=== PATIENT | male | born 1950 | race Caucasian/White ===

== ENCOUNTER 2019-06-23 17:33 | Emergency (ER) | payer MEDICARE, BC ==
[2019-06-23] MEDS ORDERED: Metoprolol Tartrate 5 MG/5 ML SDV IVPUSH ONE ×2 (17:57→18:32)
[2019-06-23] MEDS ORDERED: Sodium Chloride 0.9% 1,000 ML IV SCH (18:00)
--- NOTE | 2019-06-23 18:39 | EDM.PDOC ---
<Niru Priest - Last Filed: 06/23/19 18:58> ED HPI GENERAL MEDICAL PROBLEM - General Stated Complaint: HEART RATE Time Seen by Provider: 06/23/19 18:00 Source of Information: Reports: Patient, Family History Limitations: Reports: No Limitations - History of Present Illness INITIAL COMMENTS - FREE TEXT/NARRATIVE: patient is a very pleasant 68-year-old male who presents today with concern for his heart beating fast all day. He states that this morning he noted when he took his blood pressure that his heart rate was around 1:30. He felt a little bit dizzy but then didn't have any other symptoms so he went about doing some work around the house. When his got home he told her what was going on and she brought him to the ER. He had one episode similar to this approximately 9 years ago and has had nothing like this since. He has felt some slight shortness of breath with moving around and a little bit of a funny feeling in his chest all day today. Easily started on thyroid medication 50 MCG by his primary. Also history of diabetes, but not on insulin. He is on metoprolol for blood pressure and certain that he took it this morning. Otherwise no recent illnesses, no significant change in activity or anything else which may have contributed to this happening. He feels well and has not had any fever, chills or sweats, chest pain, nausea or vomiting, diarrhea - Related Data Allergies Allergy/AdvReac Type Severity Reaction Status Date / Time Penicillins Allergy Other Verified 06/23/19 18:32 Home Meds: Home Meds Ascorbate Calcium [Vitamin C] 500 mg PO DAILY 06/23/19 [History] Aspirin [Halfprin] 81 mg PO DAILY 06/23/19 [History] Calcium Carbonate [Calcium] 600 mg PO DAILY 06/23/19 [History] Cannabidiol (Cbd) Extract [CBD Oil] 17 mg PO ASDIRECTED 06/23/19 [History] Dapagliflozin Propanediol [Farxiga] 5 mg PO DAILY 06/23/19 [History] Fenofibrate Nanocrystallized [Fenofibrate] 145 mg PO DAILY 06/23/19 [History] Krill Oil 500 mg PO DAILY 06/23/19 [History] Levothyroxine [Synthroid] 50 mcg PO ACBREAKFAST 06/23/19 [History] Magnesium 400 mg PO DAILY 06/23/19 [History] Melatonin 5 mg PO BEDTIME 06/23/19 [History] Methylcellulose [Fiber] 0 mg PO DAILY 06/23/19 [History] Metoprolol Tartrate [Lopressor] 37.5 mg PO BID 06/23/19 [History] Vitamin B Complex 1 each PO DAILY 06/23/19 [History] Past Medical History Cardiovascular History: Reports: High Cholesterol, Hypertension Endocrine/Metabolic History: Reports: Diabetes, Type II, Hypothyroidism Social & Family History - Tobacco Use Smoking Status *Q: Former Smoker - Alcohol Use Alcohol Use History: No - Recreational Drug Use Recreational Drug Use: No - Living Situation & Occupation Living situation: Reports: Occupation: Retired ED ROS GENERAL - Review of Systems Review Of Systems: ROS reveals no pertinent complaints other than HPI. ED EXAM, GENERAL - Physical Exam Exam: See Below Free Text/Narrative:: Gen.: Alert, very pleasant no acute distress. Head is atraumatic, pupils equal and reactive, throat without erythema and mucous members are moist. Heart is tachycardic and regular around 140. Lungs are clear throughout with no wheezes or crackles. Abdomen positive bowel sounds, soft nondistended nontender. Peripheral pulses +2 in the upper and lower extremities and he has no lower extremity edema. His strength is equal side to side and his gait is normal.Obvious lesions or rashes and there is no joint swelling. EKG INTERPRETATION Rhythm: A-Flutter Course - Vital Signs Text/Narrative:: patient presenting with tachycardia which started this morning, EKG shows a flutter. Given that he is already on metoprolol decision made to use Lopressor to decrease rate. Labs and IV fluid ordered as well. Good blood pressure Last Recorded V/S: Last Vital Signs Temp 36.4 C 06/23/19 17:33 Pulse 97 06/23/19 18:45 Resp 16 06/23/19 17:33 BP 111/84 06/23/19 18:45 Pulse Ox 96 06/23/19 17:33 - Orders/Labs/Meds Orders: Active Orders 24 hr Category Date Time Status EKG Documentation Completion [RC] ASDIRECTED Care 06/23/19 17:56 Active EKG Documentation Completion [RC] ASDIRECTED Care 06/23/19 19:29 Active EKG Documentation Completion [RC] ASDIRECTED Care 06/23/19 20:17 Active Sodium Chloride 0.9% [Normal Saline] 1,000 ml Med 06/23/19 18:00 Active IV ASDIRECTED Sodium Chloride 0.9% [Saline Flush] Med 06/23/19 19:54 Active 10 ml FLUSH ASDIRECTED PRN EKG 12 Lead [EK] Routine Ther 06/23/19 17:55 Ordered EKG 12 Lead [EK] Routine Ther 06/23/19 19:28 Ordered EKG 12 Lead [EK] Routine Ther 06/23/19 20:17 Ordered Medication Orders Sodium Chloride (Normal Saline) 1,000 mls @ 999 mls/hr IV ASDIRECTED MI Last Admin: 06/23/19 18:12 Dose: 999 mls/hr Sodium Chloride (Saline Flush) 10 ml FLUSH ASDIRECTED PRN PRN Reason: Keep Vein Open Last Admin: 06/23/19 20:43 Dose: 10 ml Admin: 06/23/19 19:55 Dose: 10 ml Labs: Laboratory Tests 06/23/19 06/23/19 06/23/19 Range/Units 18:03 18:03 18:03 WBC 7.8 (4.5-12.0) X10-3/uL RBC 5.16 (4.30-5.75) x10(6)uL Hgb 15.2 (13.5-17.8) g/dL Hct 44.9 (30.0-51.3) % MCV 87.0 (80-96) fL MCH 29.4 (27.7-33.6) pg MCHC 33.9 (32.2-35.4) g/dL RDW 12.9 (11.5-15.5) % Plt Count 251 (125-369) X10(3)uL MPV 9.0 (7.4-10.4) fL Neut % (Auto) 61.9 (46-82) % Lymph % (Auto) 24.4 (13-37) % [place] % (Auto) 6.6 (4-12) % Eos % (Auto) 6 H (1.0-5.0) % Baso % (Auto) 1 (0-2) % Neut # (Auto) 4.8 (1.6-8.3) # Lymph # (Auto) 1.9 (0.6-5.0) # [place] # (Auto) 0.5 (0.0-1.3) # Eos # (Auto) 0.5 (0.0-0.8) # Baso # (Auto) 0.1 (0.0-0.2) # Sodium 139 (135-145) mmol/L Potassium 4.6 (3.5-5.3) mmol/L Chloride 103 (100-110) mmol/L Carbon Dioxide 25 (21-32) mmol/L BUN 35 H (7-18) mg/dL Creatinine 1.7 H (0.70-1.30) mg/dL Est Cr Clr Drug Dosing TNP Estimated GFR (MDRD) 40 L (>60) BUN/Creatinine Ratio 20.6 H (9-20) Glucose 150 H (80-116) mg/dL Calcium 9.7 (8.6-10.2) mg/dL Magnesium 2.1 (1.8-2.5) mg/dL Troponin I < 0.017 L (<0.017-0.056) ng/mL TSH, Ultra Sensitive (0.36-3.74) IU/mL 06/23/19 Range/Units 19:12 WBC (4.5-12.0) X10-3/uL RBC (4.30-5.75) x10(6)uL Hgb (13.5-17.8) g/dL Hct (30.0-51.3) % MCV (80-96) fL MCH (27.7-33.6) pg MCHC (32.2-35.4) g/dL RDW (11.5-15.5) % Plt Count (125-369) X10(3)uL MPV (7.4-10.4) fL Neut % (Auto) (46-82) % Lymph % (Auto) (13-37) % [place] % (Auto) (4-12) % Eos % (Auto) (1.0-5.0) % Baso % (Auto) (0-2) % Neut # (Auto) (1.6-8.3) # Lymph # (Auto) (0.6-5.0) # [place] # (Auto) (0.0-1.3) # Eos # (Auto) (0.0-0.8) # Baso # (Auto) (0.0-0.2) # Sodium (135-145) mmol/L Potassium (3.5-5.3) mmol/L Chloride (100-110) mmol/L Carbon Dioxide (21-32) mmol/L BUN (7-18) mg/dL Creatinine (0.70-1.30) mg/dL Est Cr Clr Drug Dosing Estimated GFR (MDRD) (>60) BUN/Creatinine Ratio (9-20) Glucose (80-116) mg/dL Calcium (8.6-10.2) mg/dL Magnesium (1.8-2.5) mg/dL Troponin I 0.021 (<0.017-0.056) ng/mL TSH, Ultra Sensitive 4.52 H (0.36-3.74) IU/mL Meds: Medications Generic Name Dose Route Start Last Admin Trade Name Freq PRN Reason Stop Dose Admin Sodium Chloride 1,000 mls @ 999 mls/hr 06/23/19 18:00 06/23/19 18:12 Normal Saline IV 999 mls/hr ASDIRECTED MI Administration Sodium Chloride 10 ml 06/23/19 19:54 06/23/19 20:43 Saline Flush FLUSH 10 ml ASDIRECTED PRN Administration Keep Vein Open Discontinued Medications Generic Name Dose Route Start Last Admin Trade Name Freq PRN Reason Stop Dose Admin Diltiazem HCl 20 mg 06/23/19 19:39 06/23/19 19:47 Diltiazem IVPUSH 06/23/19 19:40 20 mg ONETIME ONE Administration Diltiazem HCl 40 mg 06/23/19 20:18 06/23/19 21:36 Diltiazem IVPUSH 06/23/19 20:19 Not Given ONETIME ONE Diltiazem HCl 25 mg 06/23/19 20:34 06/23/19 20:38 Diltiazem IVPUSH 06/23/19 20:35 25 mg ONETIME ONE Administration Metoprolol Tartrate 5 mg 06/23/19 17:57 06/23/19 18:02 Lopressor IVPUSH 06/23/19 17:58 5 mg ONETIME ONE Administration Metoprolol Tartrate 5 mg 06/23/19 18:32 06/23/19 18:35 Lopressor IVPUSH 06/23/19 18:33 5 mg ONETIME ONE Administration - Re-Assessments/Exams Free Text/Narrative Re-Assessment/Exam: 06/23/19 1900 rate improved to 100bpm after 10mg lopressor. labs reviewed - creatinine 1.7, uncertain baseline repeat EKG ordered signout given to oncoming ED provider at 1900 Departure - Departure Disposition: DC/Tfer to Other 70 Clinical Impression: Atrial flutter Qualifiers: Atrial flutter type: unspecified Qualified Code(s): I48.92 - Unspecified atrial flutter - Discharge Information Referrals: Cyndi Valle PA-C [Primary Care Provider] - - My Orders Last 24 Hours: My Active Orders 06/23/19 20:17 EKG Documentation Completion [RC] ASDIRECTED EKG 12 Lead [EK] Routine - Assessment/Plan Last 24 Hours: My Active Orders 06/23/19 20:17 EKG Documentation Completion [RC] ASDIRECTED EKG 12 Lead [EK] Routine <Terry Hemphill - Last Filed: 06/23/19 21:41> Course - Vital Signs Text/Narrative:: Following assessment after hand off from Dr. Priest, I administered Cardizem 20 mg IV bolus over 2 minutes, with no change in rate or rhythm. 1/2 hour later, I adminstered 25 mg Carizem IV bolus over 2 minutes, with no change. Follow up Troponin I 0.021 and EKG remained unchanged. Consultation was obtained at [facility] with Dr Rivas, who accepted transfer, and patient and spouse are in agreement with this COA. He was stable at time of transfer per ground ambulance. Departure - Departure Time of Disposition: 21:15 Condition: Fair - Discharge Information *PRESCRIPTION DRUG MONITORING PROGRAM REVIEWED*: Not Applicable *COPY OF PRESCRIPTION DRUG MONITORING REPORT IN PATIENT MARIA ESTHER: Not Applicable - Problem List & Annotations (1) Atrial flutter SNOMED Code(s): 0788390 Code(s): I48.92 - UNSPECIFIED ATRIAL FLUTTER Status: Acute Current Visit : Yes Annotation/Comment:: Transfer to [facility] for further evaluation and treatment. Qualifiers: Atrial flutter type: unspecified Qualified Code(s): I48.92 - Unspecified atrial flutter - Problem List Review Problem List Initiated/Reviewed/Updated: Yes - Assessment/Plan Plan: Follow up with PCP upon return.
[2019-06-23] MEDS ORDERED: Diltiazem 25 MG/5 ML SDV IVPUSH ONE ×3 (19:39→20:34)
[2019-06-23] MEDS: Sodium Chloride 0.9% 10 ML Syringe FLUSH PRN ×2 (19:55→20:43)
== END 2019-06-23 22:21 | disposition other institution (70) ==
LOC: FB.ED 17:33
DX: I48.92 Unspecified atrial flutter (principal); I10 Essential (primary) hypertension; E03.9 Hypothyroidism, unspecified; E11.9 Type 2 diabetes mellitus without complications; Z87.891 Personal history of nicotine dependence; Z79.82 Long term (current) use of aspirin; Z79.899 Other long term (current) drug therapy; Z88.0 Allergy status to penicillin
CPT/HCPCS: 36415; 80048; 83735; 84443; 84484; 85025; 93005; 96361; 96374; 96375; 96376; 99285; J3490; J7030

== ENCOUNTER 2019-12-14 06:38 | Inpatient (IN) | payer MEDICARE, BC ==
[~2019-12-14 06:38] MED LIST: Acetaminophen 500 MG Tab PO ONE; Lactated Ringers 1,000 ML IV SCH; Scopolamine 1.5 MG Transdermal Patch TRDERM ONE
[2019-12-14] MEDS ORDERED: Clindamycin in 0.9 % Sod Chlor 900 MG/50 ML BAG IV ONE (07:30)
[2019-12-14] MEDS ORDERED: Clindamycin Phosphate 900 MG in Sodium Chloride 0.9% 100 ML IV ONE (07:30)
[2019-12-14] MEDS ORDERED: Tranexamic Acid 3,000 MG, Sodium Chloride 0.9% 100 ML IRR ONE ×2 (08:00)
[2019-12-14] MEDS ORDERED: Ropivacaine 49.25 ML, Ketorolac 30 MG, EPINEPHrine 0.5 MG, cloNIDine 80 MCG, Sodium Chl... INJECT SCH ×5 (08:00)
[2019-12-14] MEDS ORDERED: Vancomycin 1 GM SDV ONE ×2 (10:12→13:31)
[2019-12-14] MEDS ORDERED: Sennosides 8.6 MG Tab PO PRN (11:30)
[2019-12-14] MEDS ORDERED: diphenhydrAMINE 50 MG/ML SDV IVPUSH PRN (11:30)
[2019-12-14] MEDS ORDERED: Morphine 2 MG/ML Syringe IVPUSH PRN (11:30)
[2019-12-14] MEDS ORDERED: Naloxone 0.4 MG/ML SDV IVPUSH PRN (11:30)
[2019-12-14] MEDS ORDERED: Ondansetron 4 MG/2 ML SDV IVPUSH PRN (11:30)
[2019-12-14] MEDS ORDERED: Bisacodyl 5 MG Tab PO PRN (11:30)
[2019-12-14] MEDS ORDERED: Docusate Sodium 100 MG Cap PO PRN (11:30)
[2019-12-14] MEDS ORDERED: Magnesium Hydroxide 400 MG/5 ML Susp 30 ML Cup PO PRN (11:30)
[2019-12-14] MEDS ORDERED: Acetaminophen/oxyCODONE 325-5 MG Tab PO PRN (11:30)
[2019-12-14] MEDS ORDERED: diphenhydrAMINE 50 MG/ML SDV IV PRN (11:46)
[2019-12-14] MEDS ORDERED: Midazolam 1 MG/ML 2 ML SDV IV ONE ×2 (12:54)
[2019-12-14] MEDS ORDERED: Rocuronium 100 MG/10 ML MDV IV ONE (12:54)
[2019-12-14] MEDS ORDERED: ePHEDrine 50 MG/ML SDV IV ONE ×2 (12:54)
[2019-12-14] MEDS ORDERED: Sugammadex Sodium 200 MG/2 ML VIAL IV ONE (12:54)
[2019-12-14] MEDS ORDERED: Ketamine 500 mg/10 ML MDV IV ONE (12:54)
[2019-12-14] MEDS ORDERED: Succinylcholine 200 MG/10 ML MDV IV ONE (12:54)
[2019-12-14] MEDS ORDERED: Propofol 200 MG/20 ML SDV IV ONE ×2 (12:54)
[2019-12-14] MEDS ORDERED: Lactated Ringers 1,000 ML IV ONE ×2 (12:54)
[2019-12-14] MEDS ORDERED: Morphine PF 10 MG/10 ML SDV EPIDUR ONE (12:54)
[2019-12-14] MEDS ORDERED: fentaNYL 100 MCG/2 ML SDV IV ONE ×2 (12:54)
--- NOTE | 2019-12-14 12:54 | CR ---
INDICATION: Postop. PELVIS: An AP view of the pelvis was obtained postop portable and compared with 10/27/19. There is now noted a total hip arthroplasty on the left. A femoral component is incompletely within the cortex - medullary cavity of the proximal femoral shaft. The medial aspect of the femoral component of the IZABELLA is 28 mm medial to the inner aspect of the cortex of the proximal shaft of the femur. That is new. Moderate degenerative change is noted at the right hip joint with hypertrophic changes, and mild loss of joint space craniolaterally. MTDD
--- NOTE | 2019-12-14 13:13 | CR ---
INDICATION: Operative guidance for total hip arthroplasty left hip. C-ARM FLUOROSCOPY UP TO 1 HOUR IN OR: 0.2 minutes C-arm fluoroscopy time was utilized during total hip arthroplasty. Images numbering 3 were obtained and had the appearance of adequate positioning in the projections obtained. MTDD
--- NOTE | 2019-12-14 14:26 | OR ---
DATE OF OPERATION: 12/14/2019 SURGEON: Craig Silva DO PREOPERATIVE DIAGNOSIS: Left hip primary osteoarthritis. POSTOPERATIVE DIAGNOSIS: Left hip primary osteoarthritis. PROCEDURE: Left hip total hip arthroplasty. ANESTHESIA: Spinal plus conscious sedation. FLUID: Lactated Ringer solution. ESTIMATED BLOOD LOSS: 300 mL. COMPLICATION: Malposition femoral implant. SPECIMEN: None. DISCHARGE DISPOSITION: Stable to PACU. INSTRUMENTATION: DePuy [place] size 6 femur, 56 mm outside diameter acetabular shell with a 6.5 x 25 mm cancellous screw, a hole eliminator, a neutral 36 mm inside diameter 56 mm outside diameter polyethylene acetabular liner and a 36 mm +5 metal femoral head. HISTORY AND INDICATION FOR THE PROCEDURE: The patient was seen preoperatively in the clinic. Preoperative imaging the above-mentioned diagnosis. Risks and goals of the procedure were explained to the patient and informed consent was obtained. DETAILS OF PROCEDURE: The patient was seen preoperatively by myself and Anesthesia staff in the preoperative holding area where the operative site was marked. He was brought to the operative suite by Anesthesia staff, where spinal sedation was administered plus conscious sedation. He was placed into a right lateral recumbent position on a PEG board. All extremities were found to be well padded. A well-padded axillary roll was then placed. The left lower extremity was then prepped and draped in a sterile manner. Time-out was called identifying the correct patient, the correct procedure, the correct site, and the antibiotics were begun within the appropriate period of time. Please note that a sterile Valdes catheter had already been inserted. An incision was made approximately 8 cm proximal to the greater trochanter extending down just distal to the level lesser trochanter. Bleeding during the case was controlled with Bovie electrocautery. The deep subcutaneous fat was then moved off the IT band. An incision was made through the IT band, just slightly anterior to the midline of the shaft, and then a Charnley retractor was inserted. I then used Bovie electrocautery to go down to the level of the lesser trochanter and then around leaving a periarticular cuff extending up into the capsule and the gluteus medius and gluteus minimus. I then went through the deep capsule and placed Homans around the femoral neck and then extended this incision up to the level of the acetabulum going over the acetabulum for exposure. I then made 2 cuts on the neck and then removed the head and neck and then made a clean-up cut on the greater trochanter. After this had been accomplished, I removed my femur out of the way and then placed a sharp Hohmann at 5 and 7 o'clock in the acetabular rim and then placed a threaded pin through the superior acetabulum for retraction. This provided good visualization. I removed any soft tissue and then used a large curette to make sure we were down to the medial wall. I then used an osteotome to remove any osteophytes off the superior acetabulum, which there were many. I then used a 45 reamer to get down to the medial wall and then subsequently reamed up to a 55 at approximately 50 degrees of flexion and 15 degrees anteriorly. I then trialed my 56 acetabular cup, which trialed nicely. I then copiously irrigated with saline, inserted my final cup and liner, and then worked on femoral preparation. I inserted my canal finder, then lateralizing reamer, then subsequently reamed up. At this point, I thought that this was going too easy without chatter, so I placed a broach and found that we were outside of the canal proximally. I did not think that we structurally entered the cortex due to how proximal this was, so I re-reamed after using the canal finder and then broached up to a 6. We then placed a 5 head and this reduced nicely with equal leg length and about 1 mm of Shuck. I then removed my femoral components, copiously irrigated with saline, and then inserted my final components and placed them in and then relocated the hip. I took an intraoperative C-arm film to make sure that we were indeed within the canal, which we were, and no other injury had been encountered. Prior to reducing though, please note that I did place a 2 mm cable just proximal to the level of lesser trochanter for added stabilization. We then copiously irrigated with Betadine infused irrigation as well as pulse lavage. I applied 0.5 g of vancomycin powder deep. I then closed the capsule, gluteus medius, and gluteus minimus with #5 Ethibond in a running manner. I then irrigated again and closed the IT band with two #5 Ethibond plus #2 Stratafix in a watertight manner followed by irrigation again with pulse lavage and Betadine infused irrigation and then applied my other half of the vancomycin powder and closed with a #2 Stratafix plus skin caity and then applied a 10 x 20 cm GIANCARLO wound VAC. The patient was then allowed to awaken from conscious sedation and rolled onto the hospital bed and taken to the PACU in stable condition. /[id number] PARISH/ADRIAN CHAVEZ
--- NOTE | 2019-12-14 15:11 | OR ---
DATE OF OPERATION: 12/14/2019 SURGEON: Craig Silva DO PREOPERATIVE DIAGNOSIS: Malpositioned femoral implant from total hip arthroplasty. POSTOPERATIVE DIAGNOSIS: Malpositioned femoral implant from total hip arthroplasty. PROCEDURE: Repositioning of femoral implant from total hip arthroplasty. ANESTHESIA: General endotracheal intubation. FLUID: Lactated Ringer solution. ESTIMATED BLOOD LOSS: 50 mL. COMPLICATIONS: None. SPECIMEN: None. DISCHARGE DISPOSITION: Stable to PACU. HISTORY AND INDICATION FOR PROCEDURE: The patient had a total hip arthroplasty done that day, although I had to perform fluoro. The beam was apparently going straight through the correct cortex to get the appearance that the implant was in the cortex. Postoperative imaging confirmed the above-mentioned diagnosis. Risks and benefits of the procedure were explained to the patient and his and informed consent was obtained from his as the patient had recently undergone anesthesia. DETAILS OF PROCEDURE: The patient was brought from the recovery area back into the operating room by the Anesthesia staff, where general endotracheal intubation was performed. The patient was placed into a right lateral recumbent position, axillary roll was used. All extremities found to be well padded. A PEG port was used for positioning. The left lower extremity was then prepped and draped in a sterile manner. Time-out was called identifying the correct patient, correct procedure, the correct site, and antibiotics were begun within appropriate period of time. I reopened the incision and removed all sutures possible all the way down through the subcutaneous layer, IT band, and to the capsule. I was then able to irrigate and then dislocate the implant from the acetabulum. I then was able to use pliers and tamp out my femoral implant. I then copiously irrigated again with saline and then reinserted the implant. We then took intraoperative plain films which did show the implant to be in good position. I then re-closed the capsule, gluteus medius, and gluteus minimus with #5 Ethibond in a running manner. I had already applied 0.5 g of vancomycin into the joint space. We then closed the IT band with two [id number] #5 Ethibond sutures and then copiously irrigated again with both pulse lavage and Betadine infused irrigation. I then applied the other 0.5 g of vancomycin over the IT band. I closed the remainder of the IT band with #2 Stratafix. I then closed the subcutaneous layer with #2 Stratafix followed by skin caity followed by a 10 x 30 cm GIANCARLO. The patient was then rolled back over to supine position, transferred to his hospital bed in good condition, and then taken to the PACU in good condition. /[id number] BS/SUZIL
--- NOTE | 2019-12-14 15:56 | PCM.OPNOTE ---
- General Post-Op/Procedure Note Date of Surgery/Procedure: 12/14/19 Operative Procedure(s): left olga Pre Op Diagnosis: left hip primary oy Post-Op Diagnosis: Same Anesthesia Technique: Combo Spinal/Epidural, Moderate Sedation Primary Surgeon: Craig Silva Anesthesia Provider: Tammy Rodriguez EBL in mLs: 200 Complications: malposition of femoral implant Condition: Good
--- NOTE | 2019-12-14 15:57 | PCM.OPNOTE ---
- General Post-Op/Procedure Note Date of Surgery/Procedure: 12/14/19 Operative Procedure(s): reposition femoral implant Pre Op Diagnosis: malposition left femoral implant Post-Op Diagnosis: Same Anesthesia Technique: General ET Tube Primary Surgeon: Craig Silva Anesthesia Provider: Tammy SAGEL in mLs: 75 Complications: None Condition: Good
--- NOTE | 2019-12-14 15:58 | CR ---
INDICATION: Postop total hip arthroplasty. LEFT HIP WITH PELVIS: Portable frontal view of the pelvis with frontal and two lateral views of the left hip were obtained post left hip arthroplasty and revealed good position and alignment of the total hip arthroplasty on the left with no evidence of a complicating process identified at this time. SCOTT
[2019-12-14] MEDS: Ketorolac 30 MG/ML SDV IVPUSH SCH (16:29)
[2019-12-14] MEDS: Clindamycin in 0.9 % Sod Chlor 600 MG/50 ML BAG IV SCH (16:38)
[2019-12-14] MEDS: Metoprolol Tartrate 25 MG Tab PO SCH (21:43)
[2019-12-14] MEDS: glipiZIDE 5 MG Tab PO SCH (21:43)
[2019-12-15] MEDS: Clindamycin in 0.9 % Sod Chlor 600 MG/50 ML BAG IV SCH (00:30)
[2019-12-15] MEDS: Ketorolac 30 MG/ML SDV IVPUSH SCH (00:30)
[2019-12-15] MEDS: Sodium Chloride 0.9% 10 ML Syringe FLUSH PRN ×3 (00:32→09:08)
[2019-12-15] MEDS: Levothyroxine 75 MCG Tab PO SCH (06:27)
[2019-12-15] MEDS: glipiZIDE 5 MG Tab PO SCH ×2 (09:14→20:55)
[2019-12-15] MEDS: Metoprolol Tartrate 25 MG Tab PO SCH ×2 (09:14→20:55)
[2019-12-15] MEDS: Tamsulosin 0.4 MG Cap.ER PO SCH (09:14)
[2019-12-15] MEDS: Aspirin 325 MG Tab.EC PO SCH (09:14)
--- NOTE | 2019-12-15 09:34 | CR ---
INDICATION: Postop left hip replacement. LEFT HIP: Two frontal views of the left hip were obtained portable and, on this single projection, suggested good position and alignment of the components of the total hip arthroplasty. No definite complicating process was identified. SCOTT
[2019-12-15] MEDS: Magnesium Oxide 400 MG Tab PO SCH (10:50)
[2019-12-15] MEDS: Multivitamin Tab PO SCH (10:50)
[2019-12-15] MEDS: traMADol 50 MG Tab PO PRN ×2 (12:31→19:52)
[2019-12-16] MEDS: traMADol 50 MG Tab PO PRN ×2 (03:44→10:08)
[2019-12-16] MEDS: Levothyroxine 75 MCG Tab PO SCH (06:01)
[2019-12-16] MEDS: Aspirin 325 MG Tab.EC PO SCH (08:58)
[2019-12-16] MEDS: glipiZIDE 5 MG Tab PO SCH ×2 (08:59→21:00)
[2019-12-16] MEDS: Tamsulosin 0.4 MG Cap.ER PO SCH (08:59)
[2019-12-16] MEDS: Metoprolol Tartrate 25 MG Tab PO SCH ×2 (09:00→21:00)
[2019-12-16] MEDS: Magnesium Oxide 400 MG Tab PO SCH (09:01)
[2019-12-16] MEDS: Multivitamin Tab PO SCH (09:01)
[2019-12-16] MEDS: Sodium Chloride 0.9% 10 ML Syringe FLUSH PRN (09:03)
--- NOTE | 2019-12-16 09:06 | PCM.PN ---
- General Info Date of Service: 12/16/19 Functional Status: Reports: Pain Controlled - Review of Systems General: Reports: No Symptoms HEENT: Reports: No Symptoms Pulmonary: Reports: No Symptoms Cardiovascular: Reports: No Symptoms Gastrointestinal: Reports: No Symptoms Genitourinary: Reports: Urgency Musculoskeletal: Reports: Joint Pain (left hip) Skin: Reports: No Symptoms Neurological: Reports: Numbness (dorsal, lateral aspect of left foot and ankle; has sensation, but it is decreased) - Patient Data Vitals - Most Recent: Last Vital Signs Temp 36.5 C 12/16/19 08:22 Pulse 77 12/16/19 08:22 Resp 12 12/16/19 08:22 BP 124/73 12/16/19 08:22 Pulse Ox 95 12/16/19 08:22 Weight - Most Recent: 112.945 kg I&O - Last 24 Hours: Intake & Output 12/15/19 12/16/19 12/16/19 22:59 06:59 14:59 Intake Total 400 Output Total 750 Balance -350 Lab Results Last 24 Hours: Laboratory Results - last 24 hr 12/15/19 12/15/19 12/15/19 Range/Units 08:50 08:50 10:54 WBC 7.1 (4.5-12.0) X10-3/uL RBC 4.10 L (4.30-5.75) x10(6)uL Hgb 12.3 L (13.5-17.8) g/dL Hct 35.5 (30.0-51.3) % MCV 86.5 (80-96) fL MCH 29.9 (27.7-33.6) pg MCHC 34.6 (32.2-35.4) g/dL RDW 14.6 (11.5-15.5) % Plt Count 166 (125-369) X10(3)uL MPV 8.0 (7.4-10.4) fL Neut % (Auto) 77.1 (46-82) % Lymph % (Auto) 15.0 (13-37) % [place] % (Auto) 6.2 (4-12) % Eos % (Auto) 1 (1.0-5.0) % Baso % (Auto) 0 (0-2) % Neut # (Auto) 5.5 (1.6-8.3) # Lymph # (Auto) 1.1 (0.6-5.0) # [place] # (Auto) 0.4 (0.0-1.3) # Eos # (Auto) 0.1 (0.0-0.8) # Baso # (Auto) 0.0 (0.0-0.2) # Sodium 137 (135-145) mmol/L Potassium 4.7 (3.5-5.3) mmol/L Chloride 102 D (100-110) mmol/L Carbon Dioxide 28 (21-32) mmol/L BUN 29 H (7-18) mg/dL Creatinine 1.2 (0.70-1.30) mg/dL Est Cr Clr Drug Dosing 58.10 mL/min Estimated GFR (MDRD) > 60 (>60) BUN/Creatinine Ratio 24.2 H (9-20) Glucose 156 H (80-116) mg/dL POC Glucose 121 H (80-116) mg/dL Calcium 8.6 (8.6-10.2) mg/dL Total Bilirubin 0.7 (0.1-1.3) mg/dL AST 43 H (5-25) IU/L ALT 39 H (12-36) U/L Alkaline Phosphatase 41 L (56-112) IU/L Total Protein 5.8 L (6.0-8.0) g/dL Albumin 3.0 L (3.2-4.6) g/dL Globulin 2.8 g/dL Albumin/Globulin Ratio 1.1 12/15/19 12/15/19 12/16/19 Range/Units 17:06 20:52 05:59 WBC (4.5-12.0) X10-3/uL RBC (4.30-5.75) x10(6)uL Hgb (13.5-17.8) g/dL Hct (30.0-51.3) % MCV (80-96) fL MCH (27.7-33.6) pg MCHC (32.2-35.4) g/dL RDW (11.5-15.5) % Plt Count (125-369) X10(3)uL MPV (7.4-10.4) fL Neut % (Auto) (46-82) % Lymph % (Auto) (13-37) % [place] % (Auto) (4-12) % Eos % (Auto) (1.0-5.0) % Baso % (Auto) (0-2) % Neut # (Auto) (1.6-8.3) # Lymph # (Auto) (0.6-5.0) # [place] # (Auto) (0.0-1.3) # Eos # (Auto) (0.0-0.8) # Baso # (Auto) (0.0-0.2) # Sodium (135-145) mmol/L Potassium (3.5-5.3) mmol/L Chloride (100-110) mmol/L Carbon Dioxide (21-32) mmol/L BUN (7-18) mg/dL Creatinine (0.70-1.30) mg/dL Est Cr Clr Drug Dosing mL/min Estimated GFR (MDRD) (>60) BUN/Creatinine Ratio (9-20) Glucose (80-116) mg/dL POC Glucose 139 H 167 H 142 H (80-116) mg/dL Calcium (8.6-10.2) mg/dL Total Bilirubin (0.1-1.3) mg/dL AST (5-25) IU/L ALT (12-36) U/L Alkaline Phosphatase (56-112) IU/L Total Protein (6.0-8.0) g/dL Albumin (3.2-4.6) g/dL Globulin g/dL Albumin/Globulin Ratio 12/16/19 12/16/19 Range/Units 06:07 06:07 WBC 7.1 (4.5-12.0) X10-3/uL RBC 4.01 L (4.30-5.75) x10(6)uL Hgb 12.2 L (13.5-17.8) g/dL Hct 34.6 (30.0-51.3) % MCV 86.4 (80-96) fL MCH 30.4 (27.7-33.6) pg MCHC 35.2 (32.2-35.4) g/dL RDW 14.1 (11.5-15.5) % Plt Count 162 (125-369) X10(3)uL MPV 8.2 (7.4-10.4) fL Neut % (Auto) 68.3 (46-82) % Lymph % (Auto) 20.3 (13-37) % [place] % (Auto) 8.8 (4-12) % Eos % (Auto) 2 (1.0-5.0) % Baso % (Auto) 1 (0-2) % Neut # (Auto) 5.0 (1.6-8.3) # Lymph # (Auto) 1.4 (0.6-5.0) # [place] # (Auto) 0.6 (0.0-1.3) # Eos # (Auto) 0.1 (0.0-0.8) # Baso # (Auto) 0.0 (0.0-0.2) # Sodium 139 (135-145) mmol/L Potassium 4.2 (3.5-5.3) mmol/L Chloride 105 (100-110) mmol/L Carbon Dioxide 27 (21-32) mmol/L BUN 25 H (7-18) mg/dL Creatinine 1.1 (0.70-1.30) mg/dL Est Cr Clr Drug Dosing 63.38 mL/min Estimated GFR (MDRD) > 60 (>60) BUN/Creatinine Ratio 22.7 H (9-20) Glucose 152 H (80-116) mg/dL POC Glucose (80-116) mg/dL Calcium 8.3 L (8.6-10.2) mg/dL Total Bilirubin 0.6 (0.1-1.3) mg/dL AST 44 H (5-25) IU/L ALT 39 H (12-36) U/L Alkaline Phosphatase 42 L (56-112) IU/L Total Protein 5.9 L (6.0-8.0) g/dL Albumin 2.9 L (3.2-4.6) g/dL Globulin 3.0 g/dL Albumin/Globulin Ratio 1.0 Med Orders - Current: Current Medications Aspirin (Ecotrin) 325 mg PO DAILY [facility] Last Admin: 12/15/19 09:14 Dose: 325 mg Bisacodyl (Dulcolax) 10 mg PO DAILY PRN PRN Reason: Constipation Diazepam (Valium) 5 mg IVPUSH Q6H PRN PRN Reason: Spasms Diphenhydramine HCl (Benadryl) 25 mg IVPUSH Q4H PRN PRN Reason: Itching Docusate Sodium (Colace) 100 mg PO BID PRN PRN Reason: Constipation Last Admin: 12/15/19 20:58 Dose: 100 mg Glipizide (Glucotrol) 5 mg PO BID [facility] Last Admin: 12/15/19 20:55 Dose: 5 mg Lactated Ringer's (Ringers, Lactated) 1,000 mls @ 125 mls/hr IV ASDIRECTED [facility] Last Admin: 12/14/19 07:46 Dose: 125 mls/hr Levothyroxine Sodium (Levothyroxine) 75 mcg PO DAILY@0600 [facility] Last Admin: 12/16/19 06:01 Dose: 75 mcg Magnesium Hydroxide (Milk Of Magnesia) 30 ml PO BID PRN PRN Reason: Constipation Magnesium Oxide (Magnesium Oxide) 400 mg PO DAILY [facility] Last Admin: 12/15/19 10:50 Dose: 400 mg Metoprolol Tartrate (Lopressor) 12.5 mg PO BID [facility] Last Admin: 12/15/19 20:55 Dose: 12.5 mg Morphine Sulfate (Morphine) 2 mg IVPUSH Q2H PRN PRN Reason: Breakthrough Pain Multivitamins/Minerals/Vitamin C (Tab-A-Liv) 1 tab PO DAILY [facility] Last Admin: 12/15/19 10:50 Dose: 1 tab Naloxone HCl (Narcan) 0.1 mg IVPUSH ONETIME PRN PRN Reason: Oversedation Ondansetron HCl (Zofran) 4 mg IVPUSH Q4H PRN PRN Reason: Nausea/Vomiting Oxycodone/Acetaminophen (Percocet 325-5 Mg) 2 tab PO Q4H PRN PRN Reason: Pain (moderate 4-6) Senna (Senna) 8.6 mg PO BID PRN PRN Reason: Constipation Sodium Chloride (Saline Flush) 10 ml FLUSH ASDIRECTED PRN PRN Reason: Keep Vein Open Last Admin: 12/15/19 09:08 Dose: 10 ml Sodium Chloride (Saline Flush) 10 ml FLUSH ASDIRECTED PRN PRN Reason: Keep Vein Open Last Admin: 12/15/19 01:08 Dose: 10 ml Tamsulosin HCl (Flomax) 0.4 mg PO DAILY [facility] Last Admin: 12/15/19 09:14 Dose: 0.4 mg Tramadol HCl (Ultram) 100 mg PO Q6H PRN PRN Reason: Pain (mild 1-3) Last Admin: 12/16/19 03:44 Dose: 100 mg Discontinued Medications Acetaminophen (Tylenol Extra Strength) 1,000 mg PO ONETIME ONE Stop: 12/14/19 06:31 Last Admin: 12/14/19 07:57 Dose: 1,000 mg Ropivacaine 49.25 ml/Ketorolac Tromethamine 30 mg/Epinephrine HCl 0.5 mg/ Clonidine HCl 80 mcg/ Sodium Chloride 48.45 ml 0 ml INJECT ASDIRECTED [facility] Stop: 12/14/19 08:01 Last Admin: 12/14/19 09:17 Dose: 100 syringe Tranexamic Acid 3,000 mg/ (Sodium Chloride 100 ml) 0 mg IRR ONETIME ONE Stop: 12/14/19 08:01 Last Admin: 12/14/19 09:16 Dose: 100 irr Diphenhydramine HCl (Benadryl) 25 mg IV ONETIME PRN PRN Reason: Pruritus Clindamycin/Sodium Chloride (Cleocin In Ns) 900 mg in 50 mls @ 100 mls/hr IV ONETIME ONE Stop: 12/14/19 07:59 Last Admin: 12/14/19 07:58 Dose: 100 mls/hr Clindamycin/Sodium Chloride (Cleocin In Ns) 600 mg in 50 mls @ 100 mls/hr IV Q8H [facility] Stop: 12/15/19 01:29 Last Admin: 12/15/19 00:30 Dose: 100 mls/hr Ketorolac Tromethamine (Toradol) 30 mg IVPUSH Q8H [facility] Stop: 12/15/19 00:01 Last Admin: 12/15/19 00:30 Dose: 30 mg Scopolamine (Transderm-Scop) 1.5 mg TRDERM Q72H ONE Stop: 12/14/19 06:31 Last Admin: 12/14/19 07:57 Dose: 1.5 mg Vancomycin HCl (Vancomycin) 1 gm .XX .STK-MED ONE Stop: 12/14/19 10:13 Last Admin: 12/14/19 10:12 Dose: 1 gm Vancomycin HCl (Vancomycin) 1 gm .XX .STK-MED ONE Stop: 12/14/19 13:32 Last Admin: 03/02/20 13:31 Dose: 1 gm - Exam General: Alert, Oriented HEENT: Pupils Equal, Pupils Reactive, Mucous Membr. Moist/[place] Lungs: Normal Respiratory Effort Cardiovascular: Regular Rate Extremities: Limited Range of Motion (operative left hip) Peripheral Pulses: 2+: Dorsalis Pedis (L), Dorsalis Pedis (R) Skin: Warm, Dry, Intact (incision closed over left total hip arthroplasty, ) Wound/Incisions: Healing Well, Other (one staple hanging on by a single arm and 3 additional caity added o post) Psy/Mental Status: Alert, Normal Affect, Normal Mood Sepsis Event Note - Evaluation Sepsis Screening Result: No Definite Risk - Focused Exam Vital Signs: Vital Signs Temp Pulse Resp BP BP Pulse Ox 12/16/19 08:22 36.5 C 77 12 124/73 95 12/16/19 01:00 36.9 C 73 16 150/84 H 98 Date Exam was Performed: 12/16/19 Time Exam was Performed: 22:41 - Problem List Review Problem List Initiated/Reviewed/Updated: Yes - Assessment Assessment:: Left total hip on 12-14-2019 - Plan Plan:: Replaced GIANCARLO dressing over incision again today. Start Vistaril PRN for pain, in addition to Tramadol. Continue working with Physical Therapy. Patient would like to go home upon discharge and is not interested in any other options. His is there to help care for him at home. Tentative plan is for discharge tomorrow.
[2019-12-17] MEDS: Levothyroxine 75 MCG Tab PO SCH (05:17)
[2019-12-17] MEDS: Aspirin 325 MG Tab.EC PO SCH (09:22)
[2019-12-17] MEDS: Metoprolol Tartrate 25 MG Tab PO SCH ×2 (09:22→20:24)
[2019-12-17] MEDS: Multivitamin Tab PO SCH (09:22)
[2019-12-17] MEDS: glipiZIDE 5 MG Tab PO SCH ×2 (09:23→20:23)
[2019-12-17] MEDS: Magnesium Oxide 400 MG Tab PO SCH (09:23)
[2019-12-17] MEDS: Tamsulosin 0.4 MG Cap.ER PO SCH (09:23)
[2019-12-17] MEDS: Gabapentin 300 MG Cap PO SCH ×2 (09:24→14:04)
[2019-12-17] MEDS ORDERED: Diazepam 2 MG Tab PO SCH (10:15)
--- NOTE | 2019-12-17 10:40 | PCM.PN ---
- General Info Date of Service: 12/17/19 Functional Status: Reports: Pain Controlled - Review of Systems General: Reports: No Symptoms HEENT: Reports: No Symptoms Pulmonary: Reports: No Symptoms Cardiovascular: Reports: No Symptoms Gastrointestinal: Reports: No Symptoms Genitourinary: Reports: No Symptoms Musculoskeletal: Reports: Leg Pain, Joint Pain, Joint Swelling Skin: Reports: No Symptoms Neurological: Reports: No Symptoms Psychiatric: Reports: No Symptoms - Patient Data Vitals - Most Recent: Last Vital Signs Temp 98.3 F 12/17/19 03:30 Pulse 80 12/17/19 09:22 Resp 20 12/17/19 03:30 BP 140/74 12/17/19 09:22 Pulse Ox 95 12/17/19 03:30 Weight - Most Recent: 249 lb Lab Results Last 24 Hours: Laboratory Results - last 24 hr 12/16/19 12/16/19 12/16/19 Range/Units 11:38 16:56 19:48 WBC (4.5-12.0) X10-3/uL RBC (4.30-5.75) x10(6)uL Hgb (13.5-17.8) g/dL Hct (30.0-51.3) % MCV (80-96) fL MCH (27.7-33.6) pg MCHC (32.2-35.4) g/dL RDW (11.5-15.5) % Plt Count (125-369) X10(3)uL MPV (7.4-10.4) fL Neut % (Auto) (46-82) % Lymph % (Auto) (13-37) % [place] % (Auto) (4-12) % Eos % (Auto) (1.0-5.0) % Baso % (Auto) (0-2) % Neut # (Auto) (1.6-8.3) # Lymph # (Auto) (0.6-5.0) # [place] # (Auto) (0.0-1.3) # Eos # (Auto) (0.0-0.8) # Baso # (Auto) (0.0-0.2) # Sodium (135-145) mmol/L Potassium (3.5-5.3) mmol/L Chloride (100-110) mmol/L Carbon Dioxide (21-32) mmol/L BUN (7-18) mg/dL Creatinine (0.70-1.30) mg/dL Est Cr Clr Drug Dosing mL/min Estimated GFR (MDRD) (>60) BUN/Creatinine Ratio (9-20) Glucose (80-116) mg/dL POC Glucose 132 H 175 H 185 H (80-116) mg/dL Calcium (8.6-10.2) mg/dL Total Bilirubin (0.1-1.3) mg/dL AST (5-25) IU/L ALT (12-36) U/L Alkaline Phosphatase (56-112) IU/L Total Protein (6.0-8.0) g/dL Albumin (3.2-4.6) g/dL Globulin g/dL Albumin/Globulin Ratio 12/17/19 12/17/19 Range/Units 06:25 06:25 WBC 5.9 (4.5-12.0) X10-3/uL RBC 3.80 L (4.30-5.75) x10(6)uL Hgb 11.5 L (13.5-17.8) g/dL Hct 33.3 (30.0-51.3) % MCV 87.7 (80-96) fL MCH 30.4 (27.7-33.6) pg MCHC 34.6 (32.2-35.4) g/dL RDW 13.9 (11.5-15.5) % Plt Count 171 (125-369) X10(3)uL MPV 8.5 (7.4-10.4) fL Neut % (Auto) 66.7 (46-82) % Lymph % (Auto) 23.4 (13-37) % [place] % (Auto) 7.6 (4-12) % Eos % (Auto) 2 (1.0-5.0) % Baso % (Auto) 1 (0-2) % Neut # (Auto) 4.0 (1.6-8.3) # Lymph # (Auto) 1.4 (0.6-5.0) # [place] # (Auto) 0.4 (0.0-1.3) # Eos # (Auto) 0.1 (0.0-0.8) # Baso # (Auto) 0.0 (0.0-0.2) # Sodium 141 (135-145) mmol/L Potassium 3.9 (3.5-5.3) mmol/L Chloride 106 (100-110) mmol/L Carbon Dioxide 28 (21-32) mmol/L BUN 22 H (7-18) mg/dL Creatinine 1.1 (0.70-1.30) mg/dL Est Cr Clr Drug Dosing 63.38 mL/min Estimated GFR (MDRD) > 60 (>60) BUN/Creatinine Ratio 20.0 (9-20) Glucose 149 H (80-116) mg/dL POC Glucose (80-116) mg/dL Calcium 8.3 L (8.6-10.2) mg/dL Total Bilirubin 0.7 (0.1-1.3) mg/dL AST 38 H D (5-25) IU/L ALT 36 (12-36) U/L Alkaline Phosphatase 40 L (56-112) IU/L Total Protein 5.9 L (6.0-8.0) g/dL Albumin 2.7 L (3.2-4.6) g/dL Globulin 3.2 g/dL Albumin/Globulin Ratio 0.8 Med Orders - Current: Current Medications Aspirin (Ecotrin) 325 mg PO DAILY [facility] Last Admin: 12/17/19 09:22 Dose: 325 mg Bisacodyl (Dulcolax) 10 mg PO DAILY PRN PRN Reason: Constipation Diazepam (Valium) 2 mg PO BID [facility] Diphenhydramine HCl (Benadryl) 25 mg IVPUSH Q4H PRN PRN Reason: Itching Docusate Sodium (Colace) 100 mg PO BID PRN PRN Reason: Constipation Last Admin: 12/15/19 20:58 Dose: 100 mg Gabapentin (Neurontin) 300 mg PO TID [facility] Last Admin: 12/17/19 09:24 Dose: 300 mg Glipizide (Glucotrol) 5 mg PO BID [facility] Last Admin: 12/17/19 09:23 Dose: 5 mg Hydroxyzine Pamoate (Vistaril) 50 mg PO Q6H PRN PRN Reason: Pain (mild 1-3) Last Admin: 12/16/19 10:08 Dose: 50 mg Lactated Ringer's (Ringers, Lactated) 1,000 mls @ 125 mls/hr IV ASDIRECTED [facility] Last Admin: 12/14/19 07:46 Dose: 125 mls/hr Levothyroxine Sodium (Levothyroxine) 75 mcg PO DAILY@0600 [facility] Last Admin: 12/17/19 05:17 Dose: 75 mcg Magnesium Hydroxide (Milk Of Magnesia) 30 ml PO BID PRN PRN Reason: Constipation Magnesium Oxide (Magnesium Oxide) 400 mg PO DAILY [facility] Last Admin: 12/17/19 09:23 Dose: 400 mg Metoprolol Tartrate (Lopressor) 12.5 mg PO BID [facility] Last Admin: 12/17/19 09:22 Dose: 12.5 mg Morphine Sulfate (Morphine) 2 mg IVPUSH Q2H PRN PRN Reason: Breakthrough Pain Multivitamins/Minerals/Vitamin C (Tab-A-Liv) 1 tab PO DAILY [facility] Last Admin: 12/17/19 09:22 Dose: 1 tab Naloxone HCl (Narcan) 0.1 mg IVPUSH ONETIME PRN PRN Reason: Oversedation Ondansetron HCl (Zofran) 4 mg IVPUSH Q4H PRN PRN Reason: Nausea/Vomiting Oxycodone/Acetaminophen (Percocet 325-5 Mg) 2 tab PO Q4H PRN PRN Reason: Pain (moderate 4-6) Last Admin: 12/16/19 21:05 Dose: 2 tab Senna (Senna) 8.6 mg PO BID PRN PRN Reason: Constipation Sodium Chloride (Saline Flush) 10 ml FLUSH ASDIRECTED PRN PRN Reason: Keep Vein Open Last Admin: 12/16/19 09:03 Dose: 10 ml Sodium Chloride (Saline Flush) 10 ml FLUSH ASDIRECTED PRN PRN Reason: Keep Vein Open Last Admin: 12/15/19 01:08 Dose: 10 ml Tamsulosin HCl (Flomax) 0.4 mg PO DAILY [facility] Last Admin: 12/17/19 09:23 Dose: 0.4 mg Tramadol HCl (Ultram) 100 mg PO Q6H PRN PRN Reason: Pain (mild 1-3) Last Admin: 12/16/19 10:08 Dose: 100 mg Discontinued Medications Acetaminophen (Tylenol Extra Strength) 1,000 mg PO ONETIME ONE Stop: 12/14/19 06:31 Last Admin: 03/02/20 07:57 Dose: 1,000 mg Ropivacaine 49.25 ml/Ketorolac Tromethamine 30 mg/Epinephrine HCl 0.5 mg/ Clonidine HCl 80 mcg/ Sodium Chloride 48.45 ml 0 ml INJECT ASDIRECTED [facility] Stop: 12/14/19 08:01 Last Admin: 12/14/19 09:17 Dose: 100 syringe Tranexamic Acid 3,000 mg/ (Sodium Chloride 100 ml) 0 mg IRR ONETIME ONE Stop: 12/14/19 08:01 Last Admin: 12/14/19 09:16 Dose: 100 irr Diazepam (Valium) 5 mg IVPUSH Q6H PRN PRN Reason: Spasms Diphenhydramine HCl (Benadryl) 25 mg IV ONETIME PRN PRN Reason: Pruritus Clindamycin/Sodium Chloride (Cleocin In Ns) 900 mg in 50 mls @ 100 mls/hr IV ONETIME ONE Stop: 12/14/19 07:59 Last Admin: 12/14/19 07:58 Dose: 100 mls/hr Clindamycin/Sodium Chloride (Cleocin In Ns) 600 mg in 50 mls @ 100 mls/hr IV Q8H [facility] Stop: 12/15/19 01:29 Last Admin: 12/15/19 00:30 Dose: 100 mls/hr Ketorolac Tromethamine (Toradol) 30 mg IVPUSH Q8H [facility] Stop: 12/15/19 00:01 Last Admin: 12/15/19 00:30 Dose: 30 mg Scopolamine (Transderm-Scop) 1.5 mg TRDERM Q72H ONE Stop: 12/14/19 06:31 Last Admin: 12/14/19 07:57 Dose: 1.5 mg Vancomycin HCl (Vancomycin) 1 gm .XX .STK-MED ONE Stop: 12/14/19 10:13 Last Admin: 12/14/19 10:12 Dose: 1 gm Vancomycin HCl (Vancomycin) 1 gm .XX .STK-MED ONE Stop: 12/14/19 13:32 Last Admin: 12/14/19 13:31 Dose: 1 gm - Exam General: Alert, Oriented, Cooperative, Mild Distress HEENT: Pupils Equal, Pupils Reactive, EOMI, Mucous Membr. Moist/[place] Neck: Supple, Trachea Midline Lungs: Normal Respiratory Effort Cardiovascular: Regular Rate GI/Abdominal Exam: No Distention Peripheral Pulses: 2+: Dorsalis Pedis (L), Dorsalis Pedis (R) Skin: Warm, Dry, Intact Wound/Incisions: Healing Well, Dressing Dry and Intact, No Drainage Neurological: No New Focal Deficit Psy/Mental Status: Alert, Normal Affect, Normal Mood Sepsis Event Note - Evaluation Sepsis Screening Result: No Definite Risk - Focused Exam Vital Signs: Vital Signs Temp Pulse Pulse Resp BP BP Pulse Ox 12/17/19 09:22 80 140/74 12/17/19 03:30 98.3 F 77 20 148/81 H 95 Date Exam was Performed: 12/17/19 Time Exam was Performed: 10:37 - Problem List & Annotations (1) Primary osteoarthritis of left hip SNOMED Code(s): 560835001826265, 922578748364792 Code(s): M16.12 - UNILATERAL PRIMARY OSTEOARTHRITIS, LEFT HIP Status: Acute Current Visit: Yes - Problem List Review Problem List Initiated/Reviewed/Updated: Yes - My Orders Last 24 Hours: My Active Orders 12/17/19 09:00 Gabapentin [Neurontin] 300 mg PO TID 12/17/19 10:15 diazePAM [Valium] 2 mg PO BID 12/18/19 08:00 CBC WITH AUTO DIFF [HEME] DAILY - Assessment Assessment:: A: POD #3 left olga P: doing better with PT today pt/ot/pain control/dvt prophylaxis plan to dc tomorrow - Plan Plan:: Replaced GIANCARLO dressing over incision again today. Start Vistaril PRN for pain, in addition to Tramadol. Continue working with Physical Therapy. Patient would like to go home upon discharge and is not interested in any other options. His is there to help care for him at home. Tentative plan is for discharge tomorrow.
[2019-12-17] MEDS: traMADol 50 MG Tab PO PRN (20:30)
[2019-12-18] MEDS: Levothyroxine 75 MCG Tab PO SCH (06:20)
[2019-12-18] MEDS: traMADol 50 MG Tab PO PRN (06:20)
--- NOTE | 2019-12-18 08:39 | PCM.PN ---
- General Info Date of Service: 12/18/19 Admission Dx/Problem (Free Text): He should without concerns. Says he is doing well. Pain is controlled. Has wound VAC in place. - Patient Data Vitals - Most Recent: Last Vital Signs Temp 98 F 12/18/19 06:00 Pulse 75 12/18/19 06:00 Resp 18 12/18/19 06:00 BP 131/72 12/18/19 06:00 Pulse Ox 95 12/18/19 06:00 Weight - Most Recent: 249 lb Lab Results Last 24 Hours: Laboratory Results - last 24 hr 12/17/19 12/17/19 12/17/19 Range/Units 12:13 18:04 20:18 WBC (4.5-12.0) X10-3/uL RBC (4.30-5.75) x10(6)uL Hgb (13.5-17.8) g/dL Hct (30.0-51.3) % MCV (80-96) fL MCH (27.7-33.6) pg MCHC (32.2-35.4) g/dL RDW (11.5-15.5) % Plt Count (125-369) X10(3)uL MPV (7.4-10.4) fL Neut % (Auto) (46-82) % Lymph % (Auto) (13-37) % [place] % (Auto) (4-12) % Eos % (Auto) (1.0-5.0) % Baso % (Auto) (0-2) % Neut # (Auto) (1.6-8.3) # Lymph # (Auto) (0.6-5.0) # [place] # (Auto) (0.0-1.3) # Eos # (Auto) (0.0-0.8) # Baso # (Auto) (0.0-0.2) # POC Glucose 133 H 119 H 234 H D (80-116) mg/dL 12/18/19 12/18/19 Range/Units 06:14 06:15 WBC 6.3 (4.5-12.0) X10-3/uL RBC 3.45 L (4.30-5.75) x10(6)uL Hgb 10.5 L (13.5-17.8) g/dL Hct 29.8 L (30.0-51.3) % MCV 86.5 (80-96) fL MCH 30.3 (27.7-33.6) pg MCHC 35.1 (32.2-35.4) g/dL RDW 14.0 (11.5-15.5) % Plt Count 179 (125-369) X10(3)uL MPV 8.7 (7.4-10.4) fL Neut % (Auto) 61.8 (46-82) % Lymph % (Auto) 26.0 (13-37) % [place] % (Auto) 8.3 (4-12) % Eos % (Auto) 3 (1.0-5.0) % Baso % (Auto) 1 (0-2) % Neut # (Auto) 4.0 (1.6-8.3) # Lymph # (Auto) 1.6 (0.6-5.0) # [place] # (Auto) 0.5 (0.0-1.3) # Eos # (Auto) 0.2 (0.0-0.8) # Baso # (Auto) 0.0 (0.0-0.2) # POC Glucose 114 D (80-116) mg/dL Med Orders - Current: Current Medications Aspirin (Ecotrin) 325 mg PO DAILY [facility] Last Admin: 12/17/19 09:22 Dose: 325 mg Bisacodyl (Dulcolax) 10 mg PO DAILY PRN PRN Reason: Constipation Diphenhydramine HCl (Benadryl) 25 mg IVPUSH Q4H PRN PRN Reason: Itching Docusate Sodium (Colace) 100 mg PO BID PRN PRN Reason: Constipation Last Admin: 12/15/19 20:58 Dose: 100 mg Glipizide (Glucotrol) 5 mg PO BID [facility] Last Admin: 12/17/19 20:23 Dose: 5 mg Hydroxyzine Pamoate (Vistaril) 50 mg PO Q6H PRN PRN Reason: Pain (mild 1-3) Last Admin: 12/16/19 10:08 Dose: 50 mg Lactated Ringer's (Ringers, Lactated) 1,000 mls @ 125 mls/hr IV ASDIRECTED [facility] Last Admin: 12/14/19 07:46 Dose: 125 mls/hr Levothyroxine Sodium (Levothyroxine) 75 mcg PO DAILY@0600 [facility] Last Admin: 12/18/19 06:20 Dose: 75 mcg Magnesium Hydroxide (Milk Of Magnesia) 30 ml PO BID PRN PRN Reason: Constipation Magnesium Oxide (Magnesium Oxide) 400 mg PO DAILY [facility] Last Admin: 12/17/19 09:23 Dose: 400 mg Metoprolol Tartrate (Lopressor) 12.5 mg PO BID [facility] Last Admin: 12/17/19 20:24 Dose: 12.5 mg Morphine Sulfate (Morphine) 2 mg IVPUSH Q2H PRN PRN Reason: Breakthrough Pain Multivitamins/Minerals/Vitamin C (Tab-A-Liv) 1 tab PO DAILY [facility] Last Admin: 12/17/19 09:22 Dose: 1 tab Naloxone HCl (Narcan) 0.1 mg IVPUSH ONETIME PRN PRN Reason: Oversedation Ondansetron HCl (Zofran) 4 mg IVPUSH Q4H PRN PRN Reason: Nausea/Vomiting Oxycodone/Acetaminophen (Percocet 325-5 Mg) 2 tab PO Q4H PRN PRN Reason: Pain (moderate 4-6) Last Admin: 12/16/19 21:05 Dose: 2 tab Senna (Senna) 8.6 mg PO BID PRN PRN Reason: Constipation Sodium Chloride (Saline Flush) 10 ml FLUSH ASDIRECTED PRN PRN Reason: Keep Vein Open Last Admin: 12/16/19 09:03 Dose: 10 ml Sodium Chloride (Saline Flush) 10 ml FLUSH ASDIRECTED PRN PRN Reason: Keep Vein Open Last Admin: 12/15/19 01:08 Dose: 10 ml Tamsulosin HCl (Flomax) 0.4 mg PO DAILY [facility] Last Admin: 12/17/19 09:23 Dose: 0.4 mg Tramadol HCl (Ultram) 100 mg PO Q6H PRN PRN Reason: Pain (mild 1-3) Last Admin: 12/18/19 06:20 Dose: 100 mg Discontinued Medications Acetaminophen (Tylenol Extra Strength) 1,000 mg PO ONETIME ONE Stop: 12/14/19 06:31 Last Admin: 12/14/19 07:57 Dose: 1,000 mg Ropivacaine 49.25 ml/Ketorolac Tromethamine 30 mg/Epinephrine HCl 0.5 mg/ Clonidine HCl 80 mcg/ Sodium Chloride 48.45 ml 0 ml INJECT ASDIRECTED [facility] Stop: 12/14/19 08:01 Last Admin: 12/14/19 09:17 Dose: 100 syringe Tranexamic Acid 3,000 mg/ (Sodium Chloride 100 ml) 0 mg IRR ONETIME ONE Stop: 12/14/19 08:01 Last Admin: 12/14/19 09:16 Dose: 100 irr Diazepam (Valium) 5 mg IVPUSH Q6H PRN PRN Reason: Spasms Diazepam (Valium) 2 mg PO BID [facility] Last Admin: 12/17/19 12:05 Dose: Not Given Diphenhydramine HCl (Benadryl) 25 mg IV ONETIME PRN PRN Reason: Pruritus Gabapentin (Neurontin) 300 mg PO TID [facility] Last Admin: 12/17/19 14:04 Dose: 300 mg Clindamycin/Sodium Chloride (Cleocin In Ns) 900 mg in 50 mls @ 100 mls/hr IV ONETIME ONE Stop: 12/14/19 07:59 Last Admin: 12/14/19 07:58 Dose: 100 mls/hr Clindamycin/Sodium Chloride (Cleocin In Ns) 600 mg in 50 mls @ 100 mls/hr IV Q8H [facility] Stop: 12/15/19 01:29 Last Admin: 12/15/19 00:30 Dose: 100 mls/hr Ketorolac Tromethamine (Toradol) 30 mg IVPUSH Q8H [facility] Stop: 12/15/19 00:01 Last Admin: 12/15/19 00:30 Dose: 30 mg Scopolamine (Transderm-Scop) 1.5 mg TRDERM Q72H ONE Stop: 12/14/19 06:31 Last Admin: 12/14/19 07:57 Dose: 1.5 mg Vancomycin HCl (Vancomycin) 1 gm .XX .STK-MED ONE Stop: 12/14/19 10:13 Last Admin: 12/14/19 10:12 Dose: 1 gm Vancomycin HCl (Vancomycin) 1 gm .XX .STK-MED ONE Stop: 12/14/19 13:32 Last Admin: 12/14/19 13:31 Dose: 1 gm - Exam General: Alert, Oriented Lungs: Normal Respiratory Effort Sepsis Event Note - Evaluation Sepsis Screening Result: No Definite Risk - Focused Exam Vital Signs: Vital Signs Temp Pulse Resp BP Pulse Ox 12/18/19 06:00 98 F 75 18 131/72 95 12/17/19 20:47 98.6 F 89 18 151/75 H 95 Date Exam was Performed: 12/18/19 Time Exam was Performed: 08:37 - Problem List & Annotations (1) S/P total hip arthroplasty SNOMED Code(s): 939378744202, 100745670761 Code(s): Z96.649 - PRESENCE OF UNSPECIFIED ARTIFICIAL HIP JOINT Status: Acute Current Visit: Yes (2) Encounter for management of wound VAC SNOMED Code(s): 978002844 Code(s): TRP3366 - Status: Acute Current Visit: Yes (3) Primary osteoarthritis of left hip SNOMED Code(s): 478888747019784, 441897948227716 Code(s): M16.12 - UNILATERAL PRIMARY OSTEOARTHRITIS, LEFT HIP Status: Acute Current Visit: Yes (4) Postoperative anemia SNOMED Code(s): 776425473, 487347635 Code(s): D64.9 - ANEMIA, UNSPECIFIED Status: Acute Current Visit: Yes - Problem List Review Problem List Initiated/Reviewed/Updated: Yes - Plan Plan:: 1. Discharge to home with PT/OT and home health. 2. Recheck with Dr[address] Silva the previously set up appointment.
[2019-12-18] MEDS: glipiZIDE 5 MG Tab PO SCH (08:51)
[2019-12-18] MEDS: Aspirin 325 MG Tab.EC PO SCH (08:51)
[2019-12-18] MEDS: Tamsulosin 0.4 MG Cap.ER PO SCH (08:51)
[2019-12-18] MEDS: Metoprolol Tartrate 25 MG Tab PO SCH (08:52)
[2019-12-18] MEDS: Magnesium Oxide 400 MG Tab PO SCH (08:54)
[2019-12-18] MEDS: Multivitamin Tab PO SCH (08:54)
== END 2019-12-18 12:55 | disposition home health service (06) | DRG 467 ==
LOC: FB.MS 06:38
PROVIDERS: ADMIT Orthopaedic Surgery; ATTEND Orthopaedic Surgery
PROC: 0SRB03Z Replacement of Left Hip Joint with Ceramic Synthetic Substitute, Open Approach (ICD-10-PCS; principal; 2019-12-14)
PROC: 0SWS0JZ Revision of Synthetic Substitute in Left Hip Joint, Femoral Surface, Open Approach (ICD-10-PCS; 2019-12-14)
DX: M16.12 Unilateral primary osteoarthritis, left hip (principal); T84.021A Dislocation of internal left hip prosthesis, initial encounter; D64.9 Anemia, unspecified
CPT/HCPCS: 36415; 72170; 73501-LT; 76000; 80053; 82962; 85025; 86850; 86900; 86901; 94150; 97110-GP; 97116-GP; 97161-GP; 97166-GO; 97530-GO; 97530-GP; 97535-GO; A9270-GY; J0171; J0330; J0735; J1885; J2250; J2270; J2704; J2795; J3010; J3370; J3490; J7050; J7120